=== PATIENT | female | born 1995 | race Two or more races ===

== ENCOUNTER 2021-05-14 22:01 | Emergency (ER) | payer SELFPAY ==
[~2021-05-14] VITALS: Ht 157.5 cm; Wt 86.2 kg
[2021-05-14 22:03] VITALS: BP 140/96
--- NOTE | 2021-05-14 22:10 | NUR ---
PT EVALUATED BY PA AND IS TO BE DISCHARGED WITH SCRIPTS
== END 2021-05-14 22:23 | disposition home or self-care (01) ==
LOC: ED 22:03
DX: B86 Scabies (principal)
CPT/HCPCS: 99283